=== PATIENT | male | born 1945 | race Caucasian/White ===

== ENCOUNTER 2020-03-09 14:42 | Inpatient (IN) | payer MEDICARE ==
[~2020-03-09] VITALS: Ht 162.6 cm; Wt 87.7 kg
--- NOTE | 2020-03-09 15:01 | PHYS DOC ---
Adult General Chief Complaint Chief Complaint: COUGH HPI HPI Patient is a 74-year-old male presents to the emergency department chief complaint that he has felt short of breath for the last 2 days reporting that 2 days ago he woke up and he felt some shortness of breath that progressively became worse stating that today he has some sternal chest pain when he takes a deep breath. Patient states that this pain does not radiate, he has not had any diaphoretic episodes, he has not had any sensations of nausea. Patient states that he does have a cough and has brought up some brown-yellowish sputum a small amount today. Patient denies any fever or chills, he denies chest palpitations, denies abdominal pain vomiting or diarrhea. Patient denies any increased thirst or increased urination. Patient does state that he was diabetic in the past however his doctor told him he does not need to take diabetes medications anymore. Patient states that he takes blood pressure medicines only losartan/hydrochlorothiazide 100-25 mg daily and metoprolol 50 mg tablet daily. Patient denies any allergies to medications patient denies any seasonal allergies patient denies any food allergies. Patient denies any swelling of his extremities, patient states that he feels like he has pneumonia as this is how his symptoms presented the last time he had pneumonia 10 years ago. Patient states he is a former cigarette smoker and quit over 45 years ago. Patient denies any illicit drug use, patient denies drinking alcohol. Patient states he lives at home alone. Review of Systems Review of Systems 14 body systems of review of systems have been reviewed. See HPI for pertinent positives and negative responses, otherwise all other systems are negative, nonpertinent or noncontributory. Allergies Allergies Allergies Coded Allergies Type Severity Reaction Last Updated Verified No Known Drug Allergies 03/09/20 No Physical Exam Physical Exam Constitutional: Well developed, well nourished, no acute distress, non-toxic appearance. HENT: Normocephalic, atraumatic, bilateral external ears normal, oropharynx moist, no oral exudates, nose normal. Eyes: PERRLA, EOMI, conjunctiva normal, no discharge. Neck: Normal range of motion, no tenderness, supple, no stridor. Cardiovascular:Heart rate irregular rhythm tachycardic to auscultation PMI just left of sternum between ribs 4 and 5 Lungs & Thorax: Bilateral breath sounds clear to auscultation all lung ballesteros, no adventitious sounds appreciated. Abdomen: Bowel sounds normal, soft, no tenderness, no masses, no pulsatile masses. Abdomen round, obese. Skin: Warm, dry, no erythema, no rash. Back: No tenderness, no CVA tenderness. Extremities: No tenderness, no cyanosis, no clubbing, ROM intact, no edema. Neurologic: Alert and oriented X 3, normal motor function, normal sensory function, no focal deficits noted. Psychologic: Affect normal, judgement normal, mood normal. EKG EKG EKG performed at 1506 per house respiratory therapy staff, shows heart rate of 170 bpm A. fib with RVR. No KS interval, QTc interval 0.454. No STEMI noted, there is ST depression in leads III through 6, reciprocal changes are not appreciated, EKG interpreted by ED attending Dr. Floyd EKG performed at 1658 by ED nursing staff shows heart rate 116, atrial fibrillation rhythm, no KS interval, QTc interval 0.454, no acute STEMI, no ACS, no acute ischemia, ST depression in leads III through 6 have resolved from previously performed EKG, EKG interpreted by ER attending Dr. Floyd. Radiology/Procedures Radiology/Procedures SEX: M EXAM STATUS: REG ER ORD. PHYSICIAN: OPAL VALENCIA APRN REASON: CHEST PAIN, SHORT OF BREATH PROCEDURE: CHEST PA & LATERAL Exam: Chest 2 views INDICATION: Chest pain TECHNIQUE: Frontal and lateral views of the chest Comparisons: None FINDINGS: The cardiomediastinal silhouette and pulmonary vessels are within normal limits. Diffuse patchy bilateral airspace disease. No pleural effusion. IMPRESSION: Diffuse patchy bilateral airspace disease, may be infectious or inflammatory in etiology. Electronically signed by: Milagro Elizondo MD (03/09/2020 5:21 PM) [facility] DICTATED AND SIGNED BY: MILAGRO ELIZONDO MD DATE: 03/09/201719 CC: OPAL VALENCIA APRN; ANTOLIN FLOYD MD; RAMIN BO APRN ~MTH0 0 Heart Score HEART Score for Chest Pain: HEART Score for Chest Pain Response (Comments) Value History Slighlty/Non-Suspicious 0 ECG Normal 0 Age > 65 2 Risk Factors 1 or 2 Risk Factors 1 Troponin < Normal Limit 0 Total 3 Risk Factors: Risk Factors: DM, Current or recent (<one month) smoker, HTN, HLP, family history of CAD, obesity. Risk Scores: Risk Factors: DM, Current or recent (<one month) smoker, HTN, HLP, family history of CAD, obesity. Course & Med Decision Making Course & Med Decision Making Pertinent Labs and Imaging studies reviewed. (See chart for details) 74-year-old male presents emergency department with chief complaint of shortness of breath stating that he thinks he might have pneumonia as this is a similar presentation of the last time he had pneumonia. Patient was hooked to the radiation monitor and noted to be and A. fib RVR, an EKG was performed which showed A. fib RVR with ST depressions in lead III through 6. Patient was given IV bolus of Cardizem and started on a Cardizem drip, labs were drawn, chest x- ray pending heart rate decreasing to 110 prior to transferring patient to radiology for PA lateral chest patient's sternal chest pain was reproducible to palpation, movement of upper extremities, and deep inspiratory expiratory movement. Pending lab results at this time Patient did not have a satisfactory response to the IV Cardizem bolus and drip titrated to max, starting 5 mg metoprolol boluses x3 for target heart rate of 110. Plan to repeat EKG when reach target heart rate. Patient reached target heart rate after first 5 mg IV injection of metoprolol. EKG in progress at this time. Patient reports that this pain was relieved from a 7 to a 4 when his heart rate decreased below target heart rate. Pending PA lateral chest x-ray. Repeat EKG showed resolution of ST depression in leads III through 6, patient's original heart score was equal to 5, revised heart score is now equal to 3. Discussed patient case with Dr. Keenan who was agreeable to take over patient care with a diagnosis of new onset atrial fibrillation to [facility] ICU. Dr. Keenan requested I consult cardiology, Dr. Low also requested I start patient on dose appropriate p.o. Eliquis. Discussed with patient plan to admit for new onset atrial fibrillation, patient was amenable to admission to [facility] ICU under the care of Dr. Keenan. Dragon Disclaimer Dragon Disclaimer This electronic medical record was generated, in whole or in part, using a voice recognition dictation system. Departure Departure: Impression: Primary Impression: New onset atrial fibrillation Additional Impression: Hypertension Disposition: 09 ADMITTED INPT THIS HOSP Admitting Physician: Nisha Keenan (ADMIT TO ICU) Condition: GUARDED Referrals: RAMIN BO APRN (PCP) Problem Qualifiers Additional Impression: Hypertension Hypertension type: essential hypertension Qualified Codes: I10 - Essential (primary) hypertension OPAL VALENCIA APRN Mar 09, 2020 15:01
[2020-03-09] MEDS ORDERED: IV NORMAL SALINE 100ML 100 ML ONE (15:14)
[2020-03-09] MEDS ORDERED: dilTIAZem 25 MG/5 ML VIAL IVP ONE ×2 (15:15→16:00)
[2020-03-09] MEDS ORDERED: ASPIRIN CHEWABLE 81 MG TABLET. PO ONE (15:15)
[2020-03-09 15:26] LABS: BASO % 0 % (0-3); EOS % 0 % (0-3); HEMATOCRIT 40.2 % (39.0-53.0); HEMOGLOBIN 13.6 g/dL (13.0-17.5); LYMPH # 1.2 x10^3/uL (1.0-4.8); LYMPH % 12 % (24-48); MEAN CORPUSCULAR HEMOGLOBIN 30 pg (25-35); MEAN CORPUSCULAR HGB CONC 34 g/dL (31-37); MEAN CORPUSCULAR VOLUME 88 fL (79-100); MONO # 0.6 x10^3/uL (0.0-1.1); MONO % 6 % (0-9); NEUT # 8.5 x10^3uL (1.8-7.7); NEUT % 83 % (31-73); PLATELET COUNT 161 x10^3/uL (140-400); RED BLOOD COUNT 4.59 x10^6/uL (4.30-5.70); RED CELL DISTRIBUTION WIDTH 12.1 % (11.5-14.5); WHITE BLOOD COUNT 10.3 x10^3/uL (4.0-11.0)
[2020-03-09] MEDS: dilTIAZem VIAL 125 MG in IV NORMAL SALINE 100ML 100 ML IV PRN ×2 (15:28→23:26)
[2020-03-09 15:51] LABS: ALBUMIN 2.9 g/dL (3.4-5.0); ALBUMIN/GLOBULIN RATIO 0.6 (1.0-1.7); ALK PHOS 93 U/L (46-116); ALT (SGPT) 40 U/L (16-63); ANION GAP 11 (6-14); AST (SGOT) 54 U/L (15-37); BLOOD UREA NITROGEN 45 mg/dL (8-26); BUN/CREATININE RATIO 28 (6-20); CALCIUM 8.3 mg/dL (8.5-10.1); CARBON DIOXIDE 31 mmol/L (21-32); CHLORIDE 96 mmol/L (98-107); CREATININE 1.6 mg/dL (0.7-1.3); GFR 42.2; GLUCOSE 125 mg/dL (70-99); MAGNESIUM 2.6 mg/dL (1.8-2.4); PHOSPHORUS 3.6 mg/dL (2.6-4.7); SODIUM 138 mmol/L (136-145); TOTAL BILIRUBIN 0.6 mg/dL (0.2-1.0); TOTAL PROTEIN 7.5 g/dL (6.4-8.2)
[2020-03-09 15:53] LABS: POTASSIUM 2.7 mmol/L (3.5-5.1)
[2020-03-09] MEDS ORDERED: POTASSIUM CHLORIDE 20 MEQ TABLET.ER. PO ONE ×2 (16:00→18:15)
[2020-03-09] MEDS ORDERED: METOPROLOL TARTRATE 5 MG/5 ML VIAL. IV PRN ×2 (16:30)
[2020-03-09] MEDS ORDERED: METOPROLOL TARTRATE 5 MG/5 ML VIAL. IV ONE (16:30)
[2020-03-09] MEDS ORDERED: ACETAMINOPHEN 500 MG TABLET PO ONE (16:30)
--- NOTE | 2020-03-09 16:46 | EKG ---
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
--- NOTE | 2020-03-09 17:24 | RAD ---
Exam: Chest 2 views INDICATION: Chest pain TECHNIQUE: Frontal and lateral views of the chest Comparisons: None FINDINGS: The cardiomediastinal silhouette and pulmonary vessels are within normal limits. Diffuse patchy bilateral airspace disease. No pleural effusion. IMPRESSION: Diffuse patchy bilateral airspace disease, may be infectious or inflammatory in etiology. Electronically signed by: Milagro Reyna MD (03/09/2020 5:21 PM) JORGE
[2020-03-09] MEDS ORDERED: METOPROLOL TART IMMED RELEASE 50 MG TABLET PO ONE (17:45)
[2020-03-09] MEDS ORDERED: METOPROLOL TART IMMED RELEASE 25 MG TABLET. PO ONE (17:45)
[2020-03-09 17:49] LABS: BGAS PH 7.52 (7.35-7.46)
[2020-03-09] MEDS ORDERED: ANTI-COAG MONITOR BY PHARMACY. MC PRN (18:30)
[2020-03-09 19:30] VITALS: BP 121/64
--- NOTE | 2020-03-09 19:34 | NUR ---
The patient, ZACK MARTINEZ, 74 y/o, M admitted by GARRY SHEA MD, was given written information regarding hospital policies, unit procedures and contact persons. Valuables were checked and logged. Call light at bedside. Will continue to monitor.
[2020-03-09] MEDS ORDERED: LOSA1TAB22 PO (20:02)
[2020-03-09] MEDS ORDERED: METO50TA6 PO (20:02)
[2020-03-09 20:30] VITALS: BP 108/66
[2020-03-09 21:00] VITALS: BP 113/67
[2020-03-09] MEDS ORDERED: AZITHROMYCIN 500 MG in IV NORMAL SALINE 250ML 250 ML IV ONE (21:00)
[2020-03-09] MEDS: APIXABAN 5 MG TABLET. PO SCH (21:22)
[2020-03-09 22:00] VITALS: BP 123/72
[2020-03-09 23:03] VITALS: BP 114/74
[2020-03-09] MEDS: ACETAMINOPHEN 325 MG TABLET PO PRN (23:26)
[2020-03-09 23:47] VITALS: BP 105/50
[2020-03-10] VITALS (23 sets, daily range): BP systolic 110–155; BP diastolic 63–79
--- NOTE | 2020-03-10 07:00 | NUR ---
[facility] cardio consulted at this time. When this nurse would go into pts room his heart rate would go up to 120's. Pt does not sustain heart rate in the 120's. Call light at bedside. Will continue to monitor.
--- NOTE | 2020-03-10 07:03 | NUR ---
Dr. Rich returned phone call and stated, "keep doing what you are doing. I will see him later." Will continue to monitor.
[2020-03-10 07:15] LABS: BASO % 0 % (0-3); EOS % 0 % (0-3); HEMATOCRIT 39.1 % (39.0-53.0); HEMOGLOBIN 13.3 g/dL (13.0-17.5); LYMPH # 1.6 x10^3/uL (1.0-4.8); LYMPH % 18 % (24-48); MEAN CORPUSCULAR HEMOGLOBIN 30 pg (25-35); MEAN CORPUSCULAR HGB CONC 34 g/dL (31-37); MEAN CORPUSCULAR VOLUME 88 fL (79-100); MONO # 0.7 x10^3/uL (0.0-1.1); MONO % 8 % (0-9); NEUT # 6.8 x10^3uL (1.8-7.7); NEUT % 74 % (31-73); PLATELET COUNT 162 x10^3/uL (140-400); RED BLOOD COUNT 4.42 x10^6/uL (4.30-5.70); RED CELL DISTRIBUTION WIDTH 12.6 % (11.5-14.5); WHITE BLOOD COUNT 9.2 x10^3/uL (4.0-11.0)
[2020-03-10 07:28] LABS: ALBUMIN 2.4 g/dL (3.4-5.0); ALBUMIN/GLOBULIN RATIO 0.6 (1.0-1.7); CALCIUM 7.8 mg/dL (8.5-10.1); CREATININE 1.4 mg/dL (0.7-1.3); GFR 49.3; POTASSIUM 3.4 mmol/L (3.5-5.1); TOTAL BILIRUBIN 0.4 mg/dL (0.2-1.0); TOTAL PROTEIN 6.7 g/dL (6.4-8.2)
[2020-03-10] MEDS ORDERED: POTASSIUM CHLORIDE 20 MEQ TABLET.ER. PO ONE (07:45)
[2020-03-10] MEDS: APIXABAN 5 MG TABLET. PO SCH ×2 (08:21→20:45)
[2020-03-10] MEDS: LACTOBACILLUS RHAMNOSUS GG 1 CAPSULE. PO SCH ×2 (08:22→20:46)
[2020-03-10] MEDS: ACETAMINOPHEN 325 MG TABLET PO PRN (12:28)
[2020-03-10] MEDS: METOPROLOL TART IMMED RELEASE 50 MG TABLET PO SCH ×2 (13:00→20:46)
[2020-03-10 16:04] LABS: CALCIUM 8.6 mg/dL (8.5-10.1); CREATININE 1.5 mg/dL (0.7-1.3); GFR 45.5; POTASSIUM 3.6 mmol/L (3.5-5.1)
--- NOTE | 2020-03-10 16:12 | HP ---
ADMIT DATE: 03/10/2020 HISTORY OF PRESENT ILLNESS: The patient is a 74-year-old male patient who presented to the Emergency Room of [facility] with a complaint of short of breath that has been going on for the last 2-3 days, reporting that 2 days ago, he woke up and felt some shortness of breath that has progressively become worse, stating that the day of admission, he has also retrosternal chest pain when he takes a deep breath. The patient stated that the pain does not radiate. He denied any diaphoresis. He has not had any sensation of nausea. The patient states that he has had a cough, has brought up some brown yellowish sputum on a small amount. He denied any fever or chills. He denied any chest pain, abdominal pain, vomiting or diarrhea. He denied any polydipsia or polyuria. The patient stated that he was diabetic in the past; however, his doctor told him that he does not need to take diabetic medication anymore. He stated that he took blood pressure medicine including losartan/hydrochlorothiazide 100/25 plus metoprolol 50 mg tablet, but denied any allergies to any medication. He stated that he was a former smoker, quit smoking about 45 years ago. He was extensively investigated in the Emergency Room. His EKG showed that he was in AFib with RVR as his heart rate was 170 beats per minute with no MA interval, QTc interval was 445. No STEMI. There is ST depression in leads II and V3 through 6 with reciprocal changes are not appreciated. EKG was read by the ER physician. A second EKG showed that he was also in atrial fibrillation with rapid ventricular response; however, the heart rate was down to 116. His chest x-ray was done and it showed diffuse patchy bilateral airspace disease, no pleural effusion. His lab work showed his white cell count to be normal. Chemistry showed he has profound hypokalemia with serum potassium 2.5 and mildly deranged kidney function. His D-dimer was 0.37. His blood gases showed a pH of 7.52, pCO2 of 35, pO2 of 64, bicarbonate 28, and oxygen saturation was 93% on FiO2 of 40%. The patient was admitted with new-onset atrial fibrillation, hypertension. He was also admitted as PUI given the finding on his chest x-ray. He was started on Cardizem drip. After receiving 2 boluses of Cardizem, we did start him on Lovenox and was admitted to the ICU and we did consult the Cardiology for evaluation and treatment. PAST MEDICAL HISTORY: Significant for type 2 diabetes that apparently was ameliorated after he changes dietary habits. According to him, he has also hypertension and gastroesophageal reflux disease. PAST SURGICAL HISTORY: Unremarkable. ALLERGIES: He has no known drug allergies. MEDICATIONS: He is currently on metoprolol tartrate 50 mg 3 times a day and losartan/hydrochlorothiazide 100/25 one tablet once a day. FAMILY HISTORY: He has 1 brother and 3 sisters. They live [place] of state and does not know much about them. His father in his 40s because of complication of diabetes and mother in her 80s because of old age according to him. SOCIAL HISTORY: He was recently . He has 2 sons and 4 daughters. He smoked more than 45 years ago. Does not use any drugs. 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 REVIEW OF SYSTEMS: The patient denies any blurring of vision, cataract, glaucoma or macular degeneration. Denied any earache, tinnitus or sensorineural deafness. Denied any nosebleeds, stuffy nose or postnasal drip. Denied any sore throat, sore tongue, toothache, hoarseness of voice or difficulty swallowing. Denied any nausea, vomiting. Denied any diarrhea or constipation. Denied any hematemesis, melena or hematochezia. Denied any dysuria, frequency or hematuria. Did complain of some mild retrosternal chest pain, felt to be his acid reflux. Denied any shortness of breath at rest. Denied any orthopnea or paroxysmal nocturnal dyspnea. He has had cough with scanty sputum. Denied any chills, rigors or fever. PHYSICAL EXAMINATION: GENERAL: On arrival to the Emergency Room, he looked well and was clearly in no apparent respiratory distress. No pallor, jaundice, cyanosis. No lymphadenopathy, no thyromegaly. No jugular venous distention. No lower limb edema. VITAL SIGNS: His heart rate on arrival was 175, blood pressure was 122/76, temperature was 100.5, respiratory rate was 26 and oxygen saturation was 88%. HEAD, EYES, EARS, NOSE AND THROAT: Showed normocephalic and atraumatic. NECK: Supple. HEART: Showed normal first and second heart sounds. No gallop, rub or murmur. CHEST: Showed central trachea, equal bilateral chest expansion, air entry, vesicular breath sounds. I really could not appreciate any crepitation or rhonchi. ABDOMEN: Distended, soft, nontender. NEUROLOGIC: He was awake, alert, responding appropriately. All his cranial nerves are intact. EXTREMITIES: He moves extremities without difficulty. He apparently ambulates without assistance or assistive devices. LABORATORY DATA: His lab work on admission showed a white cell count of 10,300; hemoglobin 13.6; hematocrit 40; MCV 88 and platelet count of 161,000 with a manual differential showed 83% polymorphs, 12% lymphocytes, 6% monocytes. His chemistry showed a serum sodium 138, potassium 2.7, chloride 96, bicarbonate 31, anion gap of 11, BUN 45, creatinine 1.6, estimated GFR was 42 mL per minute, his glucose 125. Lactic acid was 1.9. Serum calcium was 8.3, phosphorus was 3.6, magnesium was 2.6. Total bilirubin, AST, ALT, alkaline phosphatase were normal. CK was 197. Troponin was less than 0.017. Total protein 7.5, albumin was 2.9. His blood gases showed a pH of 7.52, pCO2 of 35, pO2 of 64, bicarbonate 28, and oxygen saturation was 93% on FiO2 of 40%. His chest x-ray showed that the patient has cardiomediastinal silhouette and pulmonary vessels are within normal limits. The patient has diffuse patchy bilateral airspace disease, no pleural effusion and that may be infectious, inflammatory in etiology. SUMMARY: This is a 74-year-old male patient who was admitted with new-onset atrial fibrillation with rapid ventricular response. He is known to have hypertension, previous history of diabetes mellitus. He has profound hypokalemia as he is on hydrochlorothiazide without potassium supplement. He has also impaired kidney function. Unfortunately, we have no other tests to compare with. He has also bilateral infiltrates that might be infectious, inflammatory and he was swabbed for coronavirus by PCR. PLAN: Obviously, he was started on Cardizem drip. After receiving 2 boluses of Cardizem, started on Lovenox, we have consulted the web ui software engineer. We have replenished his potassium. I probably start him on IV antibiotic for possible community-acquired pneumonia and decide the further management accordingly. GARRY SHEA MD DR: GOPAL/ralph JOB#: [id number] / [id number]
--- NOTE | 2020-03-10 16:47 | PN ---
DATE: 03/10/2020 SUBJECTIVE: The patient is sitting comfortably in his recliner, in no apparent distress. He continued to complain of mild retrosternal chest pain due to his acid reflux. He is feeling generally much improved. His heart rate is now well controlled, and he is now on metoprolol and apixaban. He is also on ceftriaxone and Zithromax. However, he continued to require 4 liters of oxygen by nasal cannula. He is not on any oxygen at home. He was swabbed. His chest x-ray showed that he had diffuse patchy bilateral airspace disease, maybe infectious, inflammatory for which he is started on ceftriaxone and Zithromax. PHYSICAL EXAMINATION: GENERAL: When I examined him this afternoon, he looked well and was clearly in no apparent respiratory distress. There is no pallor, jaundice, cyanosis, or thyromegaly. No jugular venous distention. No limb edema. VITAL SIGNS: His heart rate was 70, blood pressure was 131/74, temperature was 98.3, respiratory rate 20, and oxygen saturation was 95% on 3 liters of oxygen. HEAD, EYES, EARS, NOSE, AND THROAT: Showed normocephalic, atraumatic. NECK: Supple. HEART: Normal first and second heart sounds. No gallop or murmur. CHEST: Showed central trachea, equally reduced expansion, reduced air entry, vesicular sounds, very few crepitations posteriorly and bilaterally, more so on the left than right. ABDOMEN: Distended, soft, nontender. NEUROLOGIC: He was grossly intact. His intake over the last 24 hours and output were incompletely recorded. LABORATORY DATA: His lab work this morning showed a white cell count 9200, hemoglobin 13.3, hematocrit 39, MCV 88, and platelet count of 162,000. His serum sodium was 142, potassium 3.4, chloride 100, bicarbonate 32, anion gap of 10, BUN 49, creatinine 1.4, estimated GFR was 49 mL per minute. His glucose 104. His calcium was 7.8. Total bilirubin, ALT, alkaline phosphatase are normal. AST is slightly elevated. His total protein 6.7, albumin was 2.4. ASSESSMENT: 1. Acute hypoxic respiratory failure. 2. Community-acquired pneumonia versus COVID-19 pneumonia. 3. Atrial fibrillation with rapid ventricular response. 4. Hypertension. 5. History of type 2 diabetes mellitus. 6. Hypokalemia. 7. Chronic kidney disease. Unfortunately, I do not have anything else to compare with, as he has never been admitted to the [facility]. We would continue with all his current medication and decide on further management accordingly. GARRY SHEA MD DR: GOPAL/ralph JOB#: [id number] / [id number]
--- NOTE | 2020-03-10 17:58 | PDOC2 ---
CONSULT DOS: DATE: 03/10/20 TIME: 17:50 Reason for Consult: Atrial fibrillation Referring Physician: Dr. Keenan Chief Complaint Shortness of breath Source: Chart review, Patient Problem List Problems Medical Problems: (1) Hypertension Status: Acute (2) New onset atrial fibrillation Status: Acute History of Present Illness The patient is a 74-year-old male who presented to the emergency room with a chief complaint of increasing shortness of breath for 2 days. The patient reported episodes of brown/yellow sputum over the past 24 hours. His chest x- ray showed diffuse patchy bilateral airspace disease. Additionally the patient was found to be in rapid atrial fibrillation and was started on IV Cardizem drip. His EKG showed no acute ischemic changes. His initial troponin was normal at less than 0.017. BN P was 350. Potassium was mildly decreased at 2.5. Creatinine was 1.4. He was continued on his Cardizem drip as well as antibiotics and pulmonary treatments overnight and is feeling better today. He is also on Covid protocols and results are pending. Cardiovascular: HTN Pulmonary: Pneumonia GI: GERD Endocrine: Diabetes Past Surgical History: No pertinent history Family History: Diabetes Smoke: Quit ALCOHOL: none Current Medications Current Medications Diltiazem HCl (Cardizem Iv Push) 20 mg 1X ONCE IVP Last administered on 03/09/20at 15:15; Start 03/09/20 at 15:15; Stop 03/09/20 at 15:16; Status DC Diltiazem HCl 125 mg/Sodium Chloride 125 ml @ 5 mls/hr CONT PRN IV SEE I/O RECORD Last administered on 03/09/20at 23:26; Start 03/09/20 at 15:15 Aspirin (Aspirin Chewable) 324 mg 1X ONCE PO Last administered on 03/09/20at 15:22; Start 03/09/20 at 15:15; Stop 03/09/20 at 15:16; Status DC Sodium Chloride 100 ml @ As Directed STK-MED ONCE .ROUTE ; Start 03/09/20 at 15:14; Stop 03/09/20 at 15:14; Status DC Diltiazem HCl (Cardizem) 125 mg STK-MED ONCE IV ; Start 03/09/20 at 15:15; Stop 03/09/20 at 15:15; Status DC Diltiazem HCl (Cardizem Iv Push) 30 mg 1X ONCE IVP Last administered on 03/09/20at 16:03; Start 03/09/20 at 16:00; Stop 03/09/20 at 16:06; Status DC Potassium Chloride (Klor-Con) 40 meq 1X ONCE PO Last administered on 03/09/20at 16:01; Start 03/09/20 at 16:00; Stop 03/09/20 at 16:06; Status DC Acetaminophen (Tylenol) 1,000 mg 1X ONCE PO Last administered on 03/09/20at 16:43; Start 03/09/20 at 16:30; Stop 03/09/20 at 16:31; Status DC Metoprolol Tartrate (Lopressor Vial) 5 mg 1X ONCE IV Last administered on 03/09/20at 16:44; Start 03/09/20 at 16:30; Stop 03/09/20 at 16:36; Status DC Metoprolol Tartrate (Lopressor Vial) 5 mg PRN 1X PRN IV HR >110; Start 03/09/20 at 16:30; Status Cancel Metoprolol Tartrate (Lopressor Vial) 5 mg PRN 1X PRN IV HR > 110 BPM; Start 03/09/20 at 16:30; Status Cancel Metoprolol Tartrate (Lopressor) 50 mg 1X ONCE PO ; Start 03/09/20 at 17:45; Stop 03/09/20 at 17:23; Status DC Metoprolol Tartrate (Lopressor) 50 mg 1X ONCE PO Last administered on 03/09/20at 17:31; Start 03/09/20 at 17:45; Stop 03/09/20 at 17:46; Status DC Potassium Chloride (Klor-Con) 40 meq 1X ONCE PO Last administered on 03/09/20at 18:19; Start 03/09/20 at 18:15; Stop 03/09/20 at 18:16; Status DC Apixaban (Eliquis) 5 mg BID PO Last administered on 03/10/20at 08:21; Start 03/09/20 at 21:00 Info (Anti-Coagulation Monitoring By Pharmacy) 1 each PRN DAILY PRN MC SEE COMMENTS; Start 03/09/20 at 18:30 Azithromycin 500 mg/Sodium Chloride 250 ml @ 250 mls/hr 1X ONCE IV Last administered on 03/09/20at 22:22; Start 03/09/20 at 21:00; Stop 03/09/20 at 21:59; Status DC Azithromycin (Zithromax) 250 mg Q24H PO ; Start 03/10/20 at 21:00; Stop 03/13/20 at 21:01 Ceftriaxone Sodium 1 gm/ Sodium Chloride 50 ml @ 100 mls/hr Q24H IV Last administered on 03/09/20at 21:22; Start 03/09/20 at 21:00 Acetaminophen (Tylenol) 650 mg PRN Q4HRS PRN PO FEVER > 100.3'F Last administered on 03/10/20at 12:28; Start 03/09/20 at 20:15 Potassium Chloride (Klor-Con) 40 meq 1X ONCE PO Last administered on 03/10/20at 08:22; Start 03/10/20 at 07:45; Stop 03/10/20 at 07:46; Status DC Lactobacillus Rhamnosus (Culturelle) 1 cap BID PO Last administered on 03/10/20at 08:22; Start 03/10/20 at 09:00 Metoprolol Tartrate (Lopressor) 50 mg BID PO Last administered on 03/10/20at 13:00; Start 03/10/20 at 13:00 Active Scripts Active Reported Losartan-Hctz 100-25 Mg Tab (Losartan/Hydrochlorothiazide) 1 Each Tablet 1 Each PO DAILY Metoprolol Tartrate 50 Mg Tablet 50 Mg PO TID Allergies: Coded Allergies: No Known Drug Allergies (Unverified , 03/09/20) General: YES: Fatigue Respiratory: YES: Shortness of breath, SOB with excertion Physical Exam Visual examination secondary to Covid protocols. VITALS Vital Signs Date Time Temp Pulse Resp B/P (MAP) Pulse Ox O2 Delivery O2 Flow Rate FiO2 03/10/20 17:04 74 20 136/72 (93) 93 Nasal Cannula 3.0 03/10/20 13:00 98.3 Labs Laboratory Tests Test 03/09/20 15:06 03/09/20 17:25 03/10/20 06:30 03/10/20 15:30 White Blood Count 10.3 x10^3/uL (4.0-11.0) 9.2 x10^3/uL (4.0-11.0) Red Blood Count 4.59 x10^6/uL (4.30-5.70) 4.42 x10^6/uL (4.30-5.70) Hemoglobin 13.6 g/dL (13.0-17.5) 13.3 g/dL (13.0-17.5) Hematocrit 40.2 % (39.0-53.0) 39.1 % (39.0-53.0) Mean Corpuscular Volume 88 fL (79-100) 88 fL (79-100) Mean Corpuscular Hemoglobin 30 pg (25-35) 30 pg (25-35) Mean Corpuscular Hemoglobin Concent 34 g/dL (31-37) 34 g/dL (31-37) Red Cell Distribution Width 12.1 % (11.5-14.5) 12.6 % (11.5-14.5) Platelet Count 161 x10^3/uL (140-400) 162 x10^3/uL (140-400) Neutrophils (%) (Auto) 83 % (31-73) 74 % (31-73) Lymphocytes (%) (Auto) 12 % (24-48) 18 % (24-48) Monocytes (%) (Auto) 6 % (0-9) 8 % (0-9) Eosinophils (%) (Auto) 0 % (0-3) 0 % (0-3) Basophils (%) (Auto) 0 % (0-3) 0 % (0-3) Neutrophils # (Auto) 8.5 x10^3uL (1.8-7.7) 6.8 x10^3uL (1.8-7.7) Lymphocytes # (Auto) 1.2 x10^3/uL (1.0-4.8) 1.6 x10^3/uL (1.0-4.8) Monocytes # (Auto) 0.6 x10^3/uL (0.0-1.1) 0.7 x10^3/uL (0.0-1.1) Eosinophils # (Auto) 0.0 x10^3/uL (0.0-0.7) 0.0 x10^3/uL (0.0-0.7) Basophils # (Auto) 0.0 x10^3/uL (0.0-0.2) 0.0 x10^3/uL (0.0-0.2) D-Dimer (Rosalina) 0.37 mg/L (0.00-0.50) Sodium Level 138 mmol/L (136-145) 142 mmol/L (136-145) 139 mmol/L (136-145) Potassium Level 2.7 mmol/L (3.5-5.1) 3.4 mmol/L (3.5-5.1) 3.6 mmol/L (3.5-5.1) Chloride Level 96 mmol/L (98-107) 100 mmol/L (98-107) 100 mmol/L (98-107) Carbon Dioxide Level 31 mmol/L (21-32) 32 mmol/L (21-32) 31 mmol/L (21-32) Anion Gap 11 (6-14) 10 (6-14) 8 (6-14) Blood Urea Nitrogen 45 mg/dL (8-26) 49 mg/dL (8-26) 51 mg/dL (8-26) Creatinine 1.6 mg/dL (0.7-1.3) 1.4 mg/dL (0.7-1.3) 1.5 mg/dL (0.7-1.3) Estimated GFR (Cockcroft-Gault) 42.2 49.3 45.5 BUN/Creatinine Ratio 28 (6-20) 35 (6-20) Glucose Level 125 mg/dL (70-99) 104 mg/dL (70-99) 125 mg/dL (70-99) Lactic Acid Level 1.9 mmol/L (0.4-2.0) Calcium Level 8.3 mg/dL (8.5-10.1) 7.8 mg/dL (8.5-10.1) 8.6 mg/dL (8.5-10.1) Phosphorus Level 3.6 mg/dL (2.6-4.7) Magnesium Level 2.6 mg/dL (1.8-2.4) Total Bilirubin 0.6 mg/dL (0.2-1.0) 0.4 mg/dL (0.2-1.0) Aspartate Amino Transf (AST/SGOT) 54 U/L (15-37) 50 U/L (15-37) Alanine Aminotransferase (ALT/SGPT) 40 U/L (16-63) 38 U/L (16-63) Alkaline Phosphatase 93 U/L (46-116) 80 U/L (46-116) Creatine Kinase 197 U/L (39-308) Creatine Kinase MB (Mass) < 0.5 ng/mL (0.0-3.6) Creatine Kinase MB Relative Index % (0-4) Troponin I Quantitative < 0.017 ng/mL (0-0.055) [id number]-Type Natriuretic Peptide 350 pg/mL (0-449) Total Protein 7.5 g/dL (6.4-8.2) 6.7 g/dL (6.4-8.2) Albumin 2.9 g/dL (3.4-5.0) 2.4 g/dL (3.4-5.0) Albumin/Globulin Ratio 0.6 (1.0-1.7) 0.6 (1.0-1.7) Blood Gas pH 7.52 (7.35-7.46) Blood Gas PCO2 35 mmHg (35-46) Blood Gas PO2 64 mmHg (71-100) Blood Gas HCO3 28 mmol/L (21-28) Arterial Bld O2 Saturation (Calc) 93 % (92-99) FiO2 40 % Images Chest x-ray with diffuse patchy airspace disease. Assessment/Plan 1. Acute respiratory failure. Patient is improved today. He is being treated for possible community-acquired pneumonia. He is also on Covid protocols and results are pending. 2. Rapid atrial fibrillation. Patient's been treated with IV Cardizem and he has converted to sinus rhythm. At this time we will continue on Cardizem and monitor his progress. 3. Hypertension. Patient's blood pressure is under improved control. We will continue present treatment. 4. Mildly elevated cardiac creatinine. Initial creatinine was 1.4 is increased to 1.5 today we will continue to monitor. 5. We will consider future echocardiogram possibly as an outpatient based on Covid protocols. Thank you for allowing us to participate in the care of your patient. PAULINA RUANO MD Mar 10, 2020 17:58
--- NOTE | 2020-03-10 19:53 | NUR ---
Pt's COVID test came back positive. Notified MD and new orders received for inhalers, and dexamethasone since pt is on antibiotics. Willl continue to monitor.
[2020-03-10] MEDS: AZITHROMYCIN 250 MG TABLET. PO SCH (20:45)
[2020-03-10] MEDS: DEXAMETHASONE SOD PHOS 4 MG/ML VIAL. IVP SCH (20:45)
[2020-03-10] MEDS: IPRATROPIUM/ALBUTEROL 20/100mcg/INH INHALER. INH SCH (22:15)
--- NOTE | 2020-03-10 22:32 | NUR ---
Pt got up to go to the bathroom and when he got back to bed he had increased sob. Pt's sats were 84% and was not rebounding even after deep slow breaths. This nurse increased pts oxygen levels to 4 Liters. Pt is in denial that he is positive for COVID. This nurse tried to educate the patient. Pt verbalizes understanding of POC. Will continue to monitor.
[2020-03-11] VITALS (12 sets, daily range): BP systolic 117–160; BP diastolic 62–84
[2020-03-11] MEDS: ACETAMINOPHEN 325 MG TABLET PO PRN ×3 (00:49→20:23)
--- NOTE | 2020-03-11 06:36 | NUR ---
Pt slept most of the night. Pt's sats stayed 90-95%. Pt's heart rate is NSR with occasional PVCs. Will continue to monitor.
[2020-03-11 07:25] LABS: CALCIUM 8.4 mg/dL (8.5-10.1); CREATININE 1.5 mg/dL (0.7-1.3); GFR 45.5; POTASSIUM 3.7 mmol/L (3.5-5.1)
[2020-03-11] MEDS: ASCORBIC ACID 1,000 MG TABLET PO SCH (09:00)
[2020-03-11] MEDS: LACTOBACILLUS RHAMNOSUS GG 1 CAPSULE. PO SCH ×2 (10:50→20:23)
[2020-03-11] MEDS: APIXABAN 5 MG TABLET. PO SCH ×2 (10:50→20:24)
[2020-03-11] MEDS: ZINC SULFATE 220 MG CAPSULE. PO SCH (10:50)
[2020-03-11] MEDS: METOPROLOL TART IMMED RELEASE 50 MG TABLET PO SCH ×2 (10:51→20:23)
[2020-03-11] MEDS: CHOLECALCIFEROL (VITAMIN D3) 1,000 UNIT TABLET PO SCH (10:52)
[2020-03-11] MEDS: IPRATROPIUM/ALBUTEROL 20/100mcg/INH INHALER. INH SCH ×4 (10:52→20:23)
[2020-03-11] MEDS: ALBUTEROL SULFATE 8GM INHALER. INH PRN ×2 (10:52→20:23)
[2020-03-11] MEDS: DEXAMETHASONE SOD PHOS 4 MG/ML VIAL. IVP SCH (10:52)
[2020-03-11] MEDS ORDERED: REMDESIVIR LOAD in IV NORMAL SALINE 250ML TV IV ONE (18:30)
--- NOTE | 2020-03-11 19:44 | PN ---
DATE: 03/11/2020 SUBJECTIVE: The patient is sitting comfortably in his recliner, in no apparent distress. He denied any chest pain. Did complain of shortness of breath and recurrent bouts of cough, is mostly dry. Denied any chills, rigors or fever. His heart rate is much better controlled now as he is now on metoprolol tartrate 50 mg twice a day as well as on apixaban for stroke prevention. PHYSICAL EXAMINATION: GENERAL: When I saw him this afternoon, he looked well and was clearly in no apparent respiratory distress. No pallor, jaundice, cyanosis or thyromegaly. No jugular venous distention. No limb edema. VITAL SIGNS: His heart rate was 81, blood pressure was 155/71, temperature was 98.7, respiratory rate was 24, and oxygen saturation was 93% on 4 liters of oxygen. HEAD, EYES, EARS, NOSE AND THROAT: Normocephalic, atraumatic. NECK: Supple. HEART: Showed normal first and second heart sounds. No gallop or murmur. CHEST: Shows central trachea, equally reduced expansion, reduced air entry, vesicular sounds. I could not appreciate any crepitation or rhonchi. ABDOMEN: Distended, soft, nontender. No guarding or rigidity. No organomegaly. All hernial orifice intact. Bowel sounds normal. NEUROLOGIC: He is awake, alert, responding appropriately. All cranial nerves are intact. He moves extremities without difficulty. LABORATORY DATA: Showed his coronavirus by PCR was detectable. His white cell count was 9200, hemoglobin was 13, hematocrit 39, MCV 88 and platelet count of 162,000 and his serum sodium was 140, potassium 3.7, chloride 100, bicarbonate 30, anion gap of 10, BUN 50, creatinine 1.5, estimated GFR was 45 mL per minute. His glucose 155, calcium was 8.4. His TSH is normal 0.696. ASSESSMENT: 1. COVID-19 pneumonia. 2. Acute hypoxic respiratory failure. 3. New onset atrial fibrillation with rapid ventricular response, rate controlled on apixaban for stroke prevention. 4. Hypertension. 5. History of type 2 diabetes mellitus. 6. Hypokalemia. 7. Chronic kidney disease. PLAN: To continue with dexamethasone. We will add Remdesivir. Continue with metoprolol to control the heart rate and apixaban for stroke prevention. GARRY SHEA MD DR: GOPAL/ralph JOB#: [id number] / [id number]
[2020-03-11] MEDS: MELATONIN 3 MG TABLET PO PRN (20:23)
[2020-03-11] MEDS: AZITHROMYCIN 250 MG TABLET. PO SCH (20:23)
[2020-03-12 04:13] LABS: HEMOGLOBIN A1C 6.3 % (4.8-5.6)
[2020-03-12 06:30] LABS: HEMATOCRIT 40.3 % (39.0-53.0); HEMOGLOBIN 13.7 g/dL (13.0-17.5); RED BLOOD COUNT 4.62 x10^6/uL (4.30-5.70); RED CELL DISTRIBUTION WIDTH 12.5 % (11.5-14.5)
[2020-03-12 06:43] LABS: WHITE BLOOD COUNT 14.7 x10^3/uL (4.0-11.0)
[2020-03-12 06:47] LABS: ALBUMIN 2.5 g/dL (3.4-5.0); ALBUMIN/GLOBULIN RATIO 0.6 (1.0-1.7); CALCIUM 8.1 mg/dL (8.5-10.1); CREATININE 1.4 mg/dL (0.7-1.3); GFR 49.3; POTASSIUM 3.4 mmol/L (3.5-5.1); TOTAL BILIRUBIN 0.2 mg/dL (0.2-1.0); TOTAL PROTEIN 6.9 g/dL (6.4-8.2)
[2020-03-12 07:00] VITALS: BP 158/75
--- NOTE | 2020-03-12 07:54 | PDOC ---
CARDIO Progress Notes Date & Time Date of Service DATE: 03/12/20 TIME: 07:46 Time of Evaluation 07:46 Subjective Notes no chest pain, palpitations, dizziness, diaphoresis. Not more SOA Vitals Vitals Vital Signs Date Time Temp Pulse Resp B/P (MAP) Pulse Ox O2 Delivery O2 Flow Rate FiO2 03/11/20 23:00 74 20 148/84 (105) 94 Nasal Cannula 5.0 03/11/20 19:15 98.3 Weight Weight [ ] Input and Output I.O. Intake and Output 03/12/20 06:59 Intake Total 960 ml Balance 960 ml Intake Oral 700 ml IV Total 260 ml # Voids 3 # Bowel Movements 1 Laboratory Labs Laboratory Tests Test 03/10/20 15:30 03/11/20 06:35 03/12/20 06:00 Sodium Level 139 mmol/L (136-145) 140 mmol/L (136-145) 138 mmol/L (136-145) Potassium Level 3.6 mmol/L (3.5-5.1) 3.7 mmol/L (3.5-5.1) 3.4 mmol/L (3.5-5.1) Chloride Level 100 mmol/L (98-107) 100 mmol/L (98-107) 100 mmol/L (98-107) Carbon Dioxide Level 31 mmol/L (21-32) 30 mmol/L (21-32) 29 mmol/L (21-32) Anion Gap 8 (6-14) 10 (6-14) 9 (6-14) Blood Urea Nitrogen 51 mg/dL (8-26) 50 mg/dL (8-26) 52 mg/dL (8-26) Creatinine 1.5 mg/dL (0.7-1.3) 1.5 mg/dL (0.7-1.3) 1.4 mg/dL (0.7-1.3) Estimated GFR (Cockcroft-Gault) 45.5 45.5 49.3 Glucose Level 125 mg/dL (70-99) 155 mg/dL (70-99) 157 mg/dL (70-99) Calcium Level 8.6 mg/dL (8.5-10.1) 8.4 mg/dL (8.5-10.1) 8.1 mg/dL (8.5-10.1) Hemoglobin A1c 6.3 % (4.8-5.6) Thyroid Stimulating Hormone (TSH) 0.696 uIU/mL (0.358-3.740) White Blood Count 14.7 x10^3/uL (4.0-11.0) Red Blood Count 4.62 x10^6/uL (4.30-5.70) Hemoglobin 13.7 g/dL (13.0-17.5) Hematocrit 40.3 % (39.0-53.0) Mean Corpuscular Volume 87 fL (79-100) Mean Corpuscular Hemoglobin 30 pg (25-35) Mean Corpuscular Hemoglobin Concent 34 g/dL (31-37) Red Cell Distribution Width 12.5 % (11.5-14.5) Platelet Count 269 x10^3/uL (140-400) D-Dimer (Rosalina) 0.21 mg/L (0.00-0.50) BUN/Creatinine Ratio 37 (6-20) Total Bilirubin 0.2 mg/dL (0.2-1.0) Aspartate Amino Transf (AST/SGOT) 83 U/L (15-37) Alanine Aminotransferase (ALT/SGPT) 80 U/L (16-63) Alkaline Phosphatase 83 U/L (46-116) Total Protein 6.9 g/dL (6.4-8.2) Albumin 2.5 g/dL (3.4-5.0) Albumin/Globulin Ratio 0.6 (1.0-1.7) Microbiology Micro Microbiology 03/09/20 Blood Culture - Preliminary, Resulted NO GROWTH AFTER 2 DAYS... Physical Exams HEENT: Neck Supple W Full Motion Chest: Symmetric Lungs: Other (on NC) Heart: RRR Abdomen: Other (non-distended ) Extremities: No Edema Neurology: alert, oriented, follow commands Assessment Assessment 1. Acute respiratory failure in setting of COVID PNA. Treated with dexame thasone and Remdesivir. 2. PAFIB, new onset in setting of above. Converted back to SR. Rate controlled on metoprolol. TSH WNL 3. Hypertension 4. RUDDY on CKD 5. Diabetes, II 6. Hypokalemia 7. PUI; COVID + Recommendations Replace K Continue metoprolol for rate control Eliquis for stroke prophylaxis Outpatient echo when recovered from COVID. Consider outpatient event monitor to guide therapy Ongoing lung optimization, treatment of COVID PNA as per IM HUYEN BARRAGAN APRN Mar 12, 2020 07:54
[2020-03-12] MEDS ORDERED: POTASSIUM CHLORIDE 20 MEQ TABLET.ER. PO ONE (08:00)
[2020-03-12] MEDS: ACETAMINOPHEN 325 MG TABLET PO PRN ×2 (09:00→20:35)
[2020-03-12] MEDS: ASCORBIC ACID 1,000 MG TABLET PO SCH (09:00)
[2020-03-12] MEDS: APIXABAN 5 MG TABLET. PO SCH ×2 (09:00→20:35)
[2020-03-12] MEDS: LACTOBACILLUS RHAMNOSUS GG 1 CAPSULE. PO SCH ×2 (09:00→20:35)
[2020-03-12] MEDS: ZINC SULFATE 220 MG CAPSULE. PO SCH (09:00)
[2020-03-12] MEDS: METOPROLOL TART IMMED RELEASE 50 MG TABLET PO SCH ×2 (09:01→20:36)
[2020-03-12] MEDS: DEXAMETHASONE SOD PHOS 4 MG/ML VIAL. IVP SCH (09:01)
[2020-03-12] MEDS: IPRATROPIUM/ALBUTEROL 20/100mcg/INH INHALER. INH SCH ×2 (09:01→12:00)
[2020-03-12] MEDS: CHOLECALCIFEROL (VITAMIN D3) 1,000 UNIT TABLET PO SCH (09:01)
[2020-03-12] MEDS: ALBUTEROL SULFATE 8GM INHALER. INH PRN (09:01)
[2020-03-12 13:11] VITALS: BP 155/85
--- NOTE | 2020-03-12 13:24 | PN ---
DATE: 03/12/2020 SUBJECTIVE: The patient is sitting comfortably in his recliner, in no apparent distress. He continued to have cough and some shortness of breath. Denied any chest pain, denied any chills, rigors or fever. He continued to require 4 liters of oxygen. We did start him yesterday on Remdesivir. PHYSICAL EXAMINATION: GENERAL: When I saw him today, he looked well and was slightly tachypneic, but there is no pallor, jaundice, cyanosis or thyromegaly. No jugular venous distention or limb edema. VITAL SIGNS: His heart rate was 79, blood pressure 158/75, temperature was 97.8, respiratory rate 22, and oxygen saturation was 92% on 5 liters of oxygen. HEAD, EYES, EARS, NOSE AND THROAT: Showed normocephalic, atraumatic. NECK: Supple. HEART: Showed normal first and second heart sounds. No gallop, rub or murmur. CHEST: Shows central trachea, equal bilateral expansion, air entry, vesicular sounds. Very few bilateral basal crepitation. I could not appreciate any rhonchi. ABDOMEN: Distended, soft, nontender. NEUROLOGIC: He was grossly intact. His intake over the last 24 hours was 800, no output was recorded. LABORATORY DATA: As of this morning, his white cell count was 14,700, hemoglobin 13.7, hematocrit 40, MCV 87 and platelet count 269,000. His chemistry showed a serum sodium 138, potassium 3.4, chloride 100, bicarbonate 29, anion gap of 9, BUN 52, creatinine 1.4, estimated GFR was 49 mL per minute. His glucose was 157, calcium was 8.1, magnesium was 2.7. Total bilirubin and alkaline phosphatase is normal. AST, ALT slightly elevated. Total protein 6.9, albumin was 2.5. ASSESSMENT: 1. COVID-19 pneumonia. 2. Acute hypoxic respiratory failure. 3. New onset atrial fibrillation with rapid ventricular response, rate controlled on apixaban for stroke prevention. 4. Hypertension. 5. History of type 2 diabetes mellitus. 6. Hypokalemia. 7. Chronic kidney disease. PLAN: To continue with dexamethasone. Continue with Remdesivir. Continue with metoprolol to control heart rate and apixaban for stroke prevention. I will add potassium chloride. GARRY SHEA MD DR: GOPAL/ralph JOB#: [id number] / [id number]
[2020-03-12] MEDS: BUDESONIDE 0.5 MG/2 ML NEBU NEB SCH ×2 (13:30→19:59)
[2020-03-12] MEDS: FLUTICASONE FUROATE 100mcg/INH ELLIPTA INHALER. INH SCH (14:00)
[2020-03-12] MEDS: POTASSIUM CHLORIDE 20 MEQ TABLET.ER. PO SCH ×2 (14:00→20:35)
[2020-03-12 15:47] VITALS: BP 154/81
[2020-03-12] MEDS: REMDESIVIR 100mg in NORMAL SALINE 250ML X 4 DAYS IV SCH (18:21)
[2020-03-12] MEDS ORDERED: REMDESIVIR 100mg in NORMAL SALINE 250ML X 9 DAYS IV SCH (18:30)
[2020-03-12 20:00] VITALS: BP 156/72
[2020-03-12] MEDS ORDERED: BUDESONIDE 0.5 MG/2 ML NEBU NEB SCH (20:00)
[2020-03-12] MEDS: MELATONIN 3 MG TABLET PO PRN (20:35)
[2020-03-12] MEDS: AZITHROMYCIN 250 MG TABLET. PO SCH (20:35)
[2020-03-13 00:01] VITALS: BP 125/66
[2020-03-13 04:12] VITALS: BP 148/77
[2020-03-13] MEDS: ACETAMINOPHEN 325 MG TABLET PO PRN (05:10)
[2020-03-13 05:52] LABS: CALCIUM 8.3 mg/dL (8.5-10.1); CREATININE 1.4 mg/dL (0.7-1.3); GFR 49.3; POTASSIUM 3.9 mmol/L (3.5-5.1)
--- NOTE | 2020-03-13 07:54 | PDOC ---
CARDIO Progress Notes Date & Time Date of Service DATE: 03/13/20 TIME: 07:53 Time of Evaluation 07:53 Subjective Notes No chest pain , palpitations. Not more SOA Vitals Vitals Vital Signs Date Time Temp Pulse Resp B/P (MAP) Pulse Ox O2 Delivery O2 Flow Rate FiO2 03/13/20 04:12 60 20 148/77 (100) 97 Nasal Cannula 4.0 03/12/20 20:00 98.3 Weight Weight [ ] Input and Output I.O. Intake and Output 03/13/20 07:00 Intake Total 980 ml Balance 980 ml Intake Oral 700 ml IV Total 280 ml # Voids 5 Laboratory Labs Laboratory Tests Test 03/12/20 06:00 03/12/20 07:41 03/13/20 05:15 White Blood Count 14.7 x10^3/uL (4.0-11.0) Red Blood Count 4.62 x10^6/uL (4.30-5.70) Hemoglobin 13.7 g/dL (13.0-17.5) Hematocrit 40.3 % (39.0-53.0) Mean Corpuscular Volume 87 fL (79-100) Mean Corpuscular Hemoglobin 30 pg (25-35) Mean Corpuscular Hemoglobin Concent 34 g/dL (31-37) Red Cell Distribution Width 12.5 % (11.5-14.5) Platelet Count 269 x10^3/uL (140-400) D-Dimer (Rosalina) 0.21 mg/L (0.00-0.50) Sodium Level 138 mmol/L (136-145) 139 mmol/L (136-145) Potassium Level 3.4 mmol/L (3.5-5.1) 3.9 mmol/L (3.5-5.1) Chloride Level 100 mmol/L (98-107) 103 mmol/L (98-107) Carbon Dioxide Level 29 mmol/L (21-32) 28 mmol/L (21-32) Anion Gap 9 (6-14) 8 (6-14) Blood Urea Nitrogen 52 mg/dL (8-26) 53 mg/dL (8-26) Creatinine 1.4 mg/dL (0.7-1.3) 1.4 mg/dL (0.7-1.3) Estimated GFR (Cockcroft-Gault) 49.3 49.3 BUN/Creatinine Ratio 37 (6-20) Glucose Level 157 mg/dL (70-99) 147 mg/dL (70-99) Calcium Level 8.1 mg/dL (8.5-10.1) 8.3 mg/dL (8.5-10.1) Magnesium Level 2.7 mg/dL (1.8-2.4) Total Bilirubin 0.2 mg/dL (0.2-1.0) Aspartate Amino Transf (AST/SGOT) 83 U/L (15-37) Alanine Aminotransferase (ALT/SGPT) 80 U/L (16-63) Alkaline Phosphatase 83 U/L (46-116) Total Protein 6.9 g/dL (6.4-8.2) Albumin 2.5 g/dL (3.4-5.0) Albumin/Globulin Ratio 0.6 (1.0-1.7) Glucose (Fingerstick) 150 mg/dL (70-99) Microbiology Micro Microbiology 03/09/20 Blood Culture - Preliminary, Resulted NO GROWTH AFTER 3 DAYS... Physical Exams HEENT: Neck Supple W Full Motion Chest: Symmetric Lungs: Other (on NC) Heart: RRR Abdomen: Other (non-distended ) Extremities: No Edema Neurology: alert, oriented, follow commands Assessment Assessment 1. Acute respiratory failure in setting of COVID PNA. Treated with dexamethasone and Remdesivir. 2. PAFIB, new onset in setting of above. Converted back to SR. Rate controlled on metoprolol. TSH WNL 3. Hypertension; controlled 4. RUDDY on CKD 5. Diabetes, II 6. Hypokalemia 7. PUI; COVID + Recommendations Continue metoprolol for rate control Eliquis for stroke prophylaxis Outpatient echo when recovered from COVID. Consider outpatient event monitor to guide therapy Ongoing lung optimization, treatment of COVID PNA as per IM Follow up in our office as arranged HUYEN BARRAGAN APRN Mar 13, 2020 07:54
--- NOTE | 2020-03-13 08:58 | EKG ---
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
[2020-03-13] MEDS: ASCORBIC ACID 1,000 MG TABLET PO SCH (09:00)
[2020-03-13] MEDS: FLUTICASONE FUROATE 100mcg/INH ELLIPTA INHALER. INH SCH (09:00)
[2020-03-13] MEDS: BUDESONIDE 0.5 MG/2 ML NEBU NEB SCH ×2 (09:16→20:00)
[2020-03-13] MEDS: METOPROLOL TART IMMED RELEASE 50 MG TABLET PO SCH ×2 (09:19→20:58)
[2020-03-13] MEDS: LACTOBACILLUS RHAMNOSUS GG 1 CAPSULE. PO SCH ×2 (09:19→20:58)
[2020-03-13] MEDS: POTASSIUM CHLORIDE 20 MEQ TABLET.ER. PO SCH ×3 (09:20→20:58)
[2020-03-13] MEDS: APIXABAN 5 MG TABLET. PO SCH ×2 (09:20→20:58)
[2020-03-13] MEDS: ZINC SULFATE 220 MG CAPSULE. PO SCH (09:23)
[2020-03-13] MEDS: CHOLECALCIFEROL (VITAMIN D3) 1,000 UNIT TABLET PO SCH (09:23)
[2020-03-13] MEDS: DEXAMETHASONE SOD PHOS 4 MG/ML VIAL. IVP SCH (09:24)
--- NOTE | 2020-03-13 09:31 | RAD ---
Single view of the chest. 03/13/2020 9:25 AM Indication: Reason: covid status / Spl. Instructions: / History: Comparison: Chest radiograph March 09, 2020 Findings: Lung volumes mildly low. There are improved but persistent patchy infiltrates throughout th e bilateral lungs. No pneumothorax or definitive effusion. Heart size is stable. No acute osseous lila nges noted in the interim. IMPRESSION: Interval improvement in, but persistent mild patchy infiltrates throughout the bilateral lungs Electronically signed by: Noé Alfaro MD (03/13/2020 9:29 AM) [id number]
[2020-03-13 12:23] VITALS: BP 169/89
--- NOTE | 2020-03-13 14:58 | PN ---
DATE: 03/13/2020 SUBJECTIVE: The patient is sitting comfortably in his recliner, in no apparent respiratory distress. He stated that he is feeling generally much better, does not have any chest tightness or shortness of breath. He is now on 2 liters of oxygen, maintaining his oxygen saturation at 93%. Denied any chills, rigors or fever. When I examined him, he looked well and was clearly in no apparent respiratory distress. No pallor, jaundice, cyanosis or thyromegaly. No jugular venous distention. No lower limb edema. OBJECTIVE: VITAL SIGNS: His heart rate was 65, blood pressure was 148/77, temperature was 98.3, respiratory rate was 22 and oxygen saturation was 95% on 2 liters of oxygen. HEENT: Normocephalic, atraumatic. NECK: Supple. HEART: Normal first and second heart sounds. No gallop or murmur. CHEST: Clear to auscultation. No crepitation or rhonchi. ABDOMEN: Distended, soft, nontender. NEUROLOGICALLY: He was somewhat hard of hearing. Otherwise, all his cranial nerves are intact. He moves extremities without difficulty, ambulates without assistance or assistive devices. His intake over the last 24 hours was 960 and no output was recorded. His white cell count was 14,700, hemoglobin 14, hematocrit 40, MCV 87 and platelet count 269,000. His chemistry this morning showed a serum sodium 139, potassium 3.9, chloride 103, bicarbonate 28, anion gap of 8, BUN 53, creatinine 1.4, estimated GFR was 49 mL per minute. His glucose was 147 and calcium was 8.3, magnesium was 2.7. ASSESSMENT: 1. COVID-19 pneumonia. 2. Acute hypoxic respiratory failure. 3. New onset atrial fibrillation with rapid ventricular response, rate controlled. We will anticoagulate with apixaban for stroke prevention. 4. Hypertension. 5. History of type 2 diabetes mellitus. 6. Hypokalemia, resolved. 7. Acute on chronic kidney disease with creatinine slightly improving. Plan is to continue with dexamethasone. Continue with remdesivir. Continue with metoprolol to control the heart rate and apixaban for stroke prevention. His potassium has improved today to 3.9. We will continue obviously with physical and occupational therapy. GARRY SHEA MD DR: GOPAL/ralph JOB#: [id number] / [id number]
[2020-03-13 17:11] VITALS: BP 152/83
[2020-03-13] MEDS: REMDESIVIR 100mg in NORMAL SALINE 250ML X 4 DAYS IV SCH (17:42)
[2020-03-13 20:06] VITALS: BP 157/84
[2020-03-13] MEDS: MELATONIN 3 MG TABLET PO PRN (20:57)
[2020-03-13] MEDS: ALBUTEROL SULFATE 8GM INHALER. INH PRN (20:57)
[2020-03-13] MEDS: AZITHROMYCIN 250 MG TABLET. PO SCH (20:58)
[2020-03-13 23:23] VITALS: BP 149/81
[2020-03-14 05:26] VITALS: BP 158/76
--- NOTE | 2020-03-14 05:55 | NUR ---
Pt awake in bed at change of shift resting. Pt A&Ox4, very pleasant and cooperative with all assessments and care. VSS. Pt up twice during shift to bathroom independently. Pt on 2L NC during entire shift and had sats >91% during sleep. Pt slept good during night with Melatonin at HS, hopeful for DC home in a few days.
[2020-03-14 06:54] LABS: HEMATOCRIT 38.1 % (39.0-53.0); HEMOGLOBIN 12.9 g/dL (13.0-17.5); RED BLOOD COUNT 4.37 x10^6/uL (4.30-5.70); RED CELL DISTRIBUTION WIDTH 12.4 % (11.5-14.5); WHITE BLOOD COUNT 13.8 x10^3/uL (4.0-11.0)
[2020-03-14 06:59] LABS: ALBUMIN 2.3 g/dL (3.4-5.0); ALBUMIN/GLOBULIN RATIO 0.6 (1.0-1.7); CALCIUM 8.1 mg/dL (8.5-10.1); CREATININE 1.2 mg/dL (0.7-1.3); GFR 58.9; POTASSIUM 4.2 mmol/L (3.5-5.1); TOTAL BILIRUBIN 0.3 mg/dL (0.2-1.0); TOTAL PROTEIN 6.1 g/dL (6.4-8.2)
[2020-03-14 07:30] LABS: DIRECT BILIRUBIN 0.1 mg/dL (0.0-0.2)
[2020-03-14] MEDS: BUDESONIDE 0.5 MG/2 ML NEBU NEB SCH ×2 (07:54→20:00)
[2020-03-14] MEDS: LACTOBACILLUS RHAMNOSUS GG 1 CAPSULE. PO SCH ×2 (08:10→20:28)
[2020-03-14] MEDS: DEXAMETHASONE SOD PHOS 4 MG/ML VIAL. IVP SCH (08:10)
[2020-03-14] MEDS: METOPROLOL TART IMMED RELEASE 50 MG TABLET PO SCH ×2 (08:13→20:28)
[2020-03-14] MEDS: ZINC SULFATE 220 MG CAPSULE. PO SCH (08:14)
[2020-03-14] MEDS: APIXABAN 5 MG TABLET. PO SCH ×2 (08:14→20:27)
[2020-03-14] MEDS: CHOLECALCIFEROL (VITAMIN D3) 1,000 UNIT TABLET PO SCH (08:14)
[2020-03-14] MEDS: POTASSIUM CHLORIDE 20 MEQ TABLET.ER. PO SCH ×3 (08:19→20:28)
[2020-03-14] MEDS: FLUTICASONE FUROATE 100mcg/INH ELLIPTA INHALER. INH SCH (08:40)
[2020-03-14] MEDS: ASCORBIC ACID 1,000 MG TABLET PO SCH (08:40)
--- NOTE | 2020-03-14 10:32 | NUR ---
Nursing Note pt up in chair, pleasant calm and cooperative. Denies complaints. Compliant with meds and assessments.
[2020-03-14 12:40] VITALS: BP 158/76
--- NOTE | 2020-03-14 13:29 | PN ---
DATE: 03/14/2020 ATTENDING PHYSICIAN: Dr. Keenan SUBJECTIVE: Doing well, up to chair. He is not short of breath. He is breathing better. He is on day 3 of 4 days of Remdesivir. OBJECTIVE FINDINGS: VITAL SIGNS: Blood pressure today is 150/76, pulse 73 and regular, temperature 97.1 degrees Fahrenheit, oxygen saturation 93% on room air. HEENT: Head is without trauma. Pupils are reactive. Sclerae nonicteric. Oropharynx clear. NECK: Supple. LUNGS: Clear. Good breath sounds. CARDIOVASCULAR: Showed regular heart tones. No gallops. ABDOMEN: Soft. EXTREMITIES: Without edema. NEUROLOGIC: Focally intact. SKIN: Warm and dry. LABORATORY DATA: Reviewed today. His hemoglobin was 12.9 grams, white count is 13,800. Electrolytes are within normal range. Creatinine is 1.2 mg/dL improved, potassium 4.2 mEq. ASSESSMENT: 1. A 74-year-old gentleman with COVID-19 pneumonia. 2. Hypoxemic respiratory failure, improved. He is down to room air now. 3. Atrial fibrillation, rapid ventricular rate, rate controlled. 4. Hypertension. 5. Diabetes. 6. Hypokalemia, resolved. 7. Acute on chronic kidney disease with improving creatinine. PLAN: 1. Continue dexamethasone. 2. Finish Remdesivir. He has a last dose tomorrow. We moved the time up in the day. 3. Continue metoprolol. 4. Serial chemistries. 5. Tentative discharge plans for tomorrow after last Remdesivir dose. JONATHAN RICHARD MD DR: DAVID/ralph JOB#: [id number] / [id number]
[2020-03-14] MEDS ORDERED: REMDESIVIR 100mg in NORMAL SALINE 250ML X 4 DAYS IV ONE (15:00)
[2020-03-14 15:16] VITALS: BP 158/76
[2020-03-14 19:35] VITALS: BP 163/87
[2020-03-14] MEDS: MELATONIN 3 MG TABLET PO PRN (20:28)
[2020-03-14] MEDS: ALBUTEROL SULFATE 8GM INHALER. INH PRN (20:28)
[2020-03-14 23:35] VITALS: BP 150/83
[2020-03-15] MEDS: ACETAMINOPHEN 325 MG TABLET PO PRN (04:02)
[2020-03-15 05:00] VITALS: BP 162/85
--- NOTE | 2020-03-15 05:55 | NUR ---
Pt awake in bed at change of shift, expressed excitement about potential to DC home tomorrow after his last dose of Remdesivir at noon. Pt A&Ox4, very pleasant and cooperative with all assessments and care. Stated that he spent most of the day in his chair and even "got rid of that oxygen in my nose!" VSS on room air. Pt up twice during night to use bathroom independently. Pt slept good during night with HS dose of Melatonin. Pt refused shower.
[2020-03-15] MEDS: BUDESONIDE 0.5 MG/2 ML NEBU NEB SCH (07:16)
[2020-03-15] MEDS: ZINC SULFATE 220 MG CAPSULE. PO SCH (07:57)
[2020-03-15] MEDS: LACTOBACILLUS RHAMNOSUS GG 1 CAPSULE. PO SCH (07:57)
[2020-03-15] MEDS: ASCORBIC ACID 1,000 MG TABLET PO SCH (07:58)
[2020-03-15] MEDS: POTASSIUM CHLORIDE 20 MEQ TABLET.ER. PO SCH (07:58)
[2020-03-15] MEDS: APIXABAN 5 MG TABLET. PO SCH (07:58)
[2020-03-15] MEDS: CHOLECALCIFEROL (VITAMIN D3) 1,000 UNIT TABLET PO SCH (07:59)
[2020-03-15] MEDS: DEXAMETHASONE SOD PHOS 4 MG/ML VIAL. IVP SCH (08:00)
[2020-03-15] MEDS: METOPROLOL TART IMMED RELEASE 50 MG TABLET PO SCH (08:00)
[2020-03-15] MEDS: FLUTICASONE FUROATE 100mcg/INH ELLIPTA INHALER. INH SCH (09:00)
--- NOTE | 2020-03-15 10:25 | DS ---
DATE OF DISCHARGE: 03/15/2020 ATTENDING PHYSICIAN: Dr. Nisha Keenan and Dr. Jonathan Richard FINAL DISCHARGE DIAGNOSES: 1. Atrial fibrillation with rapid ventricular rate, controlled. 2. Essential hypertension. 3. COVID-19 bronchitis. 4. Essential hypertension. 5. Hypokalemia. 6. Chronic kidney disease. HISTORY AND PHYSICAL: This is a pleasant 74-year-old gentleman with some medical issues, admitted with shortness of breath, evidence of COVID-19 infection, atrial fibrillation, rapid ventricular rate, and hypokalemia. PHYSICAL EXAMINATION: Please see the dictated note. PERTINENT LABORATORY AND X-RAY STUDIES: Admission electrolytes showed sodium of 138, potassium was replaced up to 4.2 mEq per liter, creatinine improved down to 1.2 mg/dL. Hemoglobin maintained at 12.9 g/dL with a white count of 13,800. Serology was indeed positive for coronavirus. IMAGING STUDIES: A followup chest x-ray done on the fifth hospital day showed improved, but persistent patchy infiltrates with bilateral lungs. COURSE IN THE HOSPITAL: The patient was admitted. He had a controlled ventricular rate with Cardizem. Cardiology recommendations on the chart, eventually switched to oral beta blockers. He did receive remdesivir with marked improvement. He finished a 4-day course of remdesivir without any problems. Potassium and magnesium supplementation administered and he did well. On the seventh hospital day, his lungs were clear. Vital signs were stable. He was afebrile and he had 92% oxygen saturations on room air, BP was 160/60, his heart rate was in a sinus rhythm and controlled at 75 per minute. Therefore, after completing his remdesivir, he is discharged home with continuation of his medications including the following: Losartan/hydrochlorothiazide 100/25 daily, metoprolol 50 mg t.i.d. He will follow up with his radiocommunications technician, Dr. Nohemy Lynn on 04/18/2020. The patient was then discharged from our hospital in stable condition with explicit instructions and followup care. JONATHAN RICHARD MD DR: DAVID/ralph JOB#: [id number] / [id number] ecc NOHEMY LYNN MD
[2020-03-15 10:26] VITALS: BP 173/89
--- NOTE | 2020-03-15 10:26 | DS ---
DATE OF DISCHARGE: ADDENDUM Total discharge time spent on discharge 41 minutes. JONATHAN RICHARD MD DR: DAVID/ralph JOB#: [id number] / [id number]
[2020-03-15] MEDS ORDERED: REMDESIVIR 100mg in NORMAL SALINE 250ML X 4 DAYS IV ONE (10:30)
--- NOTE | 2020-03-15 11:45 | NUR ---
Pt discharged home with home health services. Medications and discharge instructions reviewed with patient and answered all questions. Patient verbalized understanding and was advised to call nurses station with any questions. Pt VSS and on RA on discharge with oxygen saturation of 94%-96%. Pt was also advised to follow up with PCP and addressed hypokalemia concern. Pt was wheeled out with all belongings to daughter's vehicle by [employer]. Gilmer BAILEY
== END 2020-03-15 11:45 | disposition home health service (06) | DRG 177 ==
LOC: ER 14:42 → ICU 18:30
PROVIDERS: ADMIT Internal Medicine; ATTEND Internal Medicine
PROC: XW033E5 Introduction of Remdesivir Anti-infective into Peripheral Vein, Percutaneous Approach, New Technology Group 5 (ICD-10-PCS; principal; 2020-03-09)
DX: U07.1 COVID-19 (principal); J96.01 Acute respiratory failure with hypoxia; J12.82 Pneumonia due to coronavirus disease 2019; N17.9 Acute kidney failure, unspecified; E11.22 Type 2 diabetes mellitus with diabetic chronic kidney disease; E87.6 Hypokalemia; I12.9 Hypertensive chronic kidney disease with stage 1 through stage 4 chronic kidney disease, or unspecified chronic kidney disease; I48.0 Paroxysmal atrial fibrillation; J40 Bronchitis, not specified as acute or chronic; K21.9 Gastro-esophageal reflux disease without esophagitis; N18.9 Chronic kidney disease, unspecified; Z79.899 Other long term (current) drug therapy; Z83.3 Family history of diabetes mellitus; Z87.891 Personal history of nicotine dependence
CPT/HCPCS: 36415; 71045; 71046; 80048; 80053; 82248; 82553; 82803; 82947; 83036; 83605; 83735; 83880; 84100; 84443; 84484; 85025; 85027; 85379; 87040; 93005; 96374; 96375; 96376; 99285; J0456; J0696; J1100; J3490; J7050; U0003

== ENCOUNTER → 2020-04-13 | Outpatient (CLI) | payer MEDICARE ==
[2020-03-15 10:26] VITALS: BP 173/89
[~2020-04-13] MED LIST: LOSA1TAB22 PO; METO50TA6 PO
--- NOTE | 2020-04-13 13:56 | CARD ---
MR#: [id number] Date of Study: 04/13/2020 Ordering Physician: NOHEMY ROSADO, Referring Physician: NOHEMY ROSADO, Tech: Yu Steve [facility] APPROVED REPORT EXAM: Two-dimensional and M-mode echocardiogram with Doppler and color Doppler. Other Information Quality : Fair INDICATION Atrial Fibrillation 2D DIMENSIONS RVDd2.7 (2.9-3.5cm)Left Atrium(2D)3.3 (1.6-4.0cm) IVSd1.5 (0.7-1.1cm)Aortic Root(2D)2.9 (2.0-3.7cm) LVDd3.6 (3.9-5.9cm)LVOT Diameter2.2 (1.8-2.4cm) PWd1.7 (0.7-1.1cm)LVDs2.1 (2.5-4.0cm) FS (%) 30.0 %SV38.5 ml LVEF(%)60.0 (>50%) Aortic Valve AoV Peak Corbin.120.7cm/sAoV VTI20.3cm AO Peak GR.5.8mmHgLVOT Peak Corbin.147.0cm/s LVOT VTI 20.42cmAO Mean GR.3mmHg DIEGO (VMAX)4.08ct3PIM (VTI)3.76cm2 Mitral Valve MV E Agxscfcj31.2cm/sMV DECEL [id number] MV A Uhkgbdbr95.7cm/sE/A Ratio0.7 Tricuspid Valve TR P. Iqxvtzbe700cg/sRAP TLHTJHXK4khCb TR Peak Gr.65wqLrIQWW01rwYe Pulmonary Vein S1 Diygxosm77.3cm/sD2 Grkdpppd37.7cm/s LEFT VENTRICLE The left ventricle is normal size. There is mild concentric left ventricular hypertrophy. The left ve ntricular systolic function is normal and the ejection fraction is within normal range. The Ejection Fraction is 55-60%. There is normal LV segmental wall motion. Transmitral Doppler flow pattern is Gra de I-abnormal relaxation pattern. RIGHT VENTRICLE The right ventricle is normal size. The right ventricular systolic function is normal. ATRIA The left atrium size is normal. The right atrium size is normal. The interatrial septum is intact wit h no evidence for an atrial septal defect or patent foramen ovale as noted on 2-D or Doppler imaging. AORTIC VALVE The aortic valve is calcified but opens well. Doppler and Color Flow revealed trace aortic regurgitat ion. There is no significant aortic valvular stenosis. MITRAL VALVE The mitral valve is calcified but opens well. There is no evidence of mitral valve prolapse. There is no mitral valve stenosis. Doppler and Color Flow revealed no mitral valve regurgitation noted. TRICUSPID VALVE The tricuspid valve is normal in structure and function. Doppler and Color Flow revealed trace tricus pid regurgitation. The PA pressure was estimated at 32 mmHg. There is no tricuspid valve stenosis. PULMONIC VALVE The pulmonic valve is not well visualized. Doppler and Color Flow revealed no pulmonic valvular regur gitation. There is no pulmonic valvular stenosis. GREAT VESSELS The aortic root is normal in size. The ascending aorta is mildly dilated at 3.5 cm. The IVC is normal in size and collapses >50% with inspiration. PERICARDIAL EFFUSION There is no evidence of significant pericardial effusion. Critical Notification Critical Value: No <Conclusion> The left ventricular systolic function is normal and the ejection fraction is within normal range. Th e Ejection Fraction is 55-60%. There is normal LV segmental wall motion. The ascending aorta is mildly dilated at 3.5 cm. Signed by : Nohemy Rosado, Electronically Approved : 04/13/2020 13:56:03
== END ==
LOC: ECHO 12:38
PROVIDERS: ATTEND Internal Medicine Cardiovascular Disease
DX: I08.0 Rheumatic disorders of both mitral and aortic valves (principal); I48.91 Unspecified atrial fibrillation
CPT/HCPCS: 93306